=== PATIENT | female | born 1985 | race Two or more races ===

== ENCOUNTER 2017-02-12 12:00 | Observation (INO) | payer SELFPAY ==
[~2017-02-12] VITALS: Ht 154.9 cm; Wt 72.6 kg
[2017-02-12 13:37] LABS: Basophils # (auto) 0 uL; Basophils % (auto) 0.2 % (0.0-2.0); Eosinophils # (auto) 0.5 uL; Hematocrit 33.9 % (36.0-46.0); Hemoglobin 11.2 g/dL (12.2-16.2); Lymphocytes # (auto) 2.3 uL; Lymphocytes % (auto) 19.3 % (10.0-50.0); Mean Corpuscular Hemoglobin 28.4 pg (28.0-32.0); Mean Corpuscular Hgb Conc. 32.9 g/dL (32.0-36.0); Mean Corpuscular Volume 86.4 fL (80.0-100.0); Monocytes % (auto) 8.2 % (0.0-12.0); Neutrophils # (auto) 8.2 uL; Neutrophils % (auto) 68.3 % (37.0-80.0); Platelet Count (auto) 282 10^3/uL (140-450); Red Cell Distribution Width 14.4 % (11.8-14.3)
[2017-02-12 13:54] LABS: Albumin 2.5 g/dL (3.4-5.0); BUN/Creatinine Ratio 8.3; Bilirubin, Total 0.5 mg/dL (0.2-1.0); Calcium 7.9 mg/dL (8.5-10.1); Potassium 3.5 mmol/L (3.5-5.1); Total Protein 6.6 g/dL (6.4-8.2)
== END 2017-02-12 14:10 | disposition home or self-care (01) | DRG 781 ==
LOC: LDRP 12:00
PROVIDERS: ADMIT Specialist; ATTEND Specialist
DX: O26.893 Other specified pregnancy related conditions, third trimester (principal); R21 Rash and other nonspecific skin eruption; Z3A.33 33 weeks gestation of pregnancy
CPT/HCPCS: 36415; 59025; 80053; 81002; 84550; 85025; 86592; G0378

== ENCOUNTER 2017-03-29 19:45 | Inpatient (IN) | payer MEDICAID ==
[~2017-03-29] VITALS: Ht 154.9 cm; Wt 74.0 kg
[2017-03-29] MEDS ORDERED: LACTATED RINGER'S 1,000 ML IV SCH (21:37)
[2017-03-29] MEDS ORDERED: LACT. RINGERS/OXYTOCIN 20UNITS 1,000 ML IV SCH (21:37)
[2017-03-29] MEDS ORDERED: LACT. RINGERS/OXYTOCIN 20UNITS 1,000 ML IV ONE (21:38)
[2017-03-29] MEDS ORDERED: LIDOCAINE 2%HCL (LOCAL ANESTH.) INJ 20ML MDV ONE (21:38)
[2017-03-29] MEDS ORDERED: NALBUPHINE HCL 10 MG/1ml INJECTION IV PRN (21:45)
[2017-03-29] MEDS ORDERED: CARBOPROST TROMETHAMINE 250 MCG/1ML VIAL IM PRN (21:45)
[2017-03-29] MEDS ORDERED: BUTORPHANOL TARTRATE 2 MG/1 ML VIAL IV PRN (21:45)
[2017-03-29] MEDS ORDERED: NALOXONE HCL 0.4 MG/ML VIAL IM PRN (21:45)
[2017-03-29] MEDS ORDERED: PHISODERM TOP SOLN 240ML BTL TOP PRN (21:45)
[2017-03-29] MEDS ORDERED: METHYLERGONOVINE MALEATE 0.2 MG/ML AMP IM PRN (21:45)
[2017-03-29] MEDS ORDERED: WITCH HAZEL-GLYCERIN PAD TOP PRN (21:45)
[2017-03-29] MEDS ORDERED: DERMOPLAST 60ML BOTTLE TOP PRN (21:45)
[2017-03-29] MEDS ORDERED: LIDOCAINE 2%HCL (LOCAL ANESTH.) INJ 20ML MDV IJ ONE (21:45)
[2017-03-29 22:43] LABS: Urine Bacteria NONE SEEN /hpf (None Seen); Urine Blood Negative /uL (Negative); Urine Specific Gravity 1.006 (1.001-1.035); Urine WBC 1 /hpf (0 - 5)
[2017-03-29 22:46] LABS: Eosinophils # (auto) 0.5 uL; Monocytes # (auto) 0.8 uL
[2017-03-29 22:48] LABS: Basophils # (auto) 0 uL; Basophils % (auto) 0.1 % (0.0-2.0); Eosinophils % (auto) 4.1 % (0.0-7.0); Hematocrit 33.9 % (36.0-46.0); Hemoglobin 11.1 g/dL (12.2-16.2); Lymphocytes # (auto) 2.3 uL; Lymphocytes % (auto) 17.6 % (10.0-50.0); Mean Corpuscular Hemoglobin 26.8 pg (28.0-32.0); Mean Corpuscular Hgb Conc. 32.8 g/dL (32.0-36.0); Mean Corpuscular Volume 81.7 fL (80.0-100.0); Monocytes % (auto) 6.5 % (0.0-12.0); Neutrophils # (auto) 9.2 uL; Neutrophils % (auto) 71.7 % (37.0-80.0); Platelet Count (auto) 264 10^3/uL (140-450); Red Blood Cells 4.15 10^6/uL (4.0-5.20); Red Cell Distribution Width 15.6 % (11.8-14.3); White Blood Cell 12.9 10^3/uL (4.4-10.8)
[2017-03-29 22:58] LABS: INR 0.9 (0.9-1.15); Partial Thromboplastin Time 25.9 sec (22.64-33.71); Prothrombin Time 9.8 sec (9.37-12.3)
[2017-03-29] MEDS ORDERED: PREN-96 PO (23:05)
[2017-03-29 23:12] LABS: Albumin 2.5 g/dL (3.4-5.0); BUN/Creatinine Ratio 12.5; Bilirubin, Total 0.8 mg/dL (0.2-1.0); Calcium 8.6 mg/dL (8.5-10.1); Potassium 3.5 mmol/L (3.5-5.1); Uric Acid 3.4 mg/dL (2.6-6.0)
[2017-03-30 04:00] VITALS: BP 102/58
[2017-03-30] MEDS ORDERED: ACETAMINOPHEN 325 MG TAB PO PRN (05:45)
[2017-03-30] MEDS: IBUPROFEN 600 MG TAB PO PRN (05:58)
[2017-03-30 07:30] VITALS: BP 91/55
[2017-03-30 11:30] VITALS: BP 97/52
[2017-03-30 15:54] VITALS: BP 106/56
[2017-03-30 19:00] VITALS: BP 109/70
[2017-03-30 23:30] VITALS: BP 93/57
[2017-03-31] MEDS: IBUPROFEN 600 MG TAB PO PRN (00:06)
[2017-03-31 04:00] VITALS: BP 90/63
[2017-03-31 08:00] VITALS: BP 100/80
[2017-03-31 11:00] VITALS: BP 110/68
== END 2017-03-31 12:42 | disposition home or self-care (01) | DRG 560 ==
LOC: OBSVTOIN 19:45 → LDRP 19:45
PROVIDERS: ADMIT Obstetrics & Gynecology; ATTEND Obstetrics & Gynecology
PROC: 10E0XZZ Delivery of Products of Conception, External Approach (ICD-10-PCS; principal; 2017-03-30)
DX: O80 Encounter for full-term uncomplicated delivery (principal); Z37.0 Single live birth; Z3A.39 39 weeks gestation of pregnancy
CPT/HCPCS: 36415; 59025; 59409; 80053; 81001; 81002; 84550; 85025; 85610; 85730; 86850; 86900; 86901; 96365; 96366; 96374; J2590

== ENCOUNTER 2022-01-03 19:22 | Observation (INO) | payer MEDICAID ==
[~2022-01-03] VITALS: Ht 154.9 cm; Wt 70.8 kg
[~2022-01-03 19:22] MED LIST: PREN-96 PO
[2022-01-04] MEDS ORDERED: LACT. RINGERS/OXYTOCIN 20UNITS 1,000 ML IV ONE (05:10)
== END 2022-01-03 21:57 | disposition home or self-care (01) ==
LOC: LDRP 19:22
PROVIDERS: ADMIT Obstetrics & Gynecology; ATTEND Obstetrics & Gynecology
DX: O62.9 Abnormality of forces of labor, unspecified (principal); O09.513 Supervision of elderly primigravida, third trimester; O24.419 Gestational diabetes mellitus in pregnancy, unspecified control; Z3A.39 39 weeks gestation of pregnancy
CPT/HCPCS: 59025; 76818; 81002; 94760; G0378

== ENCOUNTER 2022-01-06 03:25 | Inpatient (IN) | payer MEDICAID ==
[~2022-01-06] VITALS: Ht 157.5 cm; Wt 70.8 kg
[2022-01-06] MEDS ORDERED: PHISODERM TOP SOLN 240ML BTL TOP PRN (04:00)
[2022-01-06] MEDS ORDERED: LIDOCAINE 2%HCL (LOCAL ANESTH.) INJ 10ml MDV IJ PRN (04:00)
[2022-01-06] MEDS ORDERED: DERMOPLAST 60ML BOTTLE TOP PRN (04:00)
[2022-01-06] MEDS ORDERED: PROMETHAZINE HCL 25 MG/ML 1ML IM PRN (04:00)
[2022-01-06] MEDS ORDERED: WITCH HAZEL-GLYCERIN PAD TOP PRN (04:00)
[2022-01-06] MEDS ORDERED: PROMETHAZINE HCL 25 MG/ML 1ML IV PRN (04:00)
[2022-01-06] MEDS ORDERED: BUTORPHANOL TARTRATE 2 MG/1 ML VIAL IV PRN ×2 (04:00)
[2022-01-06 04:18] LABS: Basophils # (auto) 0.1 10 ^3/uL (0-0.2); Basophils % (auto) 0.6 % (0.0-2.0); Eosinophils # (auto) 0.5 10 ^3/uL (0-0.8); Eosinophils % (auto) 4.8 % (0.0-7.0); Hematocrit 35.7 % (36.0-46.0); Hemoglobin 12.3 g/dL (12.2-16.2); Lymphocytes % (auto) 27.6 % (10.0-50.0); Mean Corpuscular Hemoglobin 30.2 pg (28.0-32.0); Mean Corpuscular Hgb Conc. 34.5 g/dL (32.0-36.0); Mean Corpuscular Volume 87.3 fL (80.0-100.0); Monocytes # (auto) 0.6 10 ^3/uL (0-1.3); Monocytes % (auto) 5.8 % (0.0-12.0); Neutrophils # (auto) 6.6 10 ^3/uL (1.6-8.6); Neutrophils % (auto) 61.2 % (37.0-80.0); Red Blood Cells 4.09 10^6/uL (4.0-5.20); Red Cell Distribution Width 16.2 % (11.8-14.3); White Blood Cell 10.8 10^3/uL (4.4-10.8)
[2022-01-06 04:20] LABS: Alcohol, Urine < 3.0 mg/dL (0-10); Amphetamine Screen, Urine NEGATIVE (NEGATIVE); Barbiturate Scree,Urine NEGATIVE (NEGATIVE); Benzodiazephine Screen, Urine NEGATIVE (NEGATIVE); Cannabinoid Screen, Urine NEGATIVE (NEGATIVE); Cocaine Screen, Urine NEGATIVE (NEGATIVE); Phencyclidine Screen, Urine NEGATIVE (NEGATIVE)
[2022-01-06 04:24] LABS: Opiate Scree,Urine NEGATIVE (NEGATIVE)
[2022-01-06 04:36] LABS: Albumin 2.3 g/dL (3.4-5.0); BUN/Creatinine Ratio 10.7; Calcium 8.6 mg/dL (8.5-10.1); Potassium 3.6 mmol/L (3.5-5.1)
[2022-01-06 04:37] LABS: INR 0.89 (0.9-1.15); Partial Thromboplastin Time 26.2 sec (24.6-33.4)
[2022-01-06 04:39] LABS: Bilirubin, Total 0.4 mg/dL (0.2-1.0); Total Protein 6.1 g/dL (6.4-8.2)
[2022-01-06 04:52] LABS: Urine Bacteria FEW /hpf (None Seen); Urine Blood 2+ /uL (Negative); Urine Specific Gravity 1.008 (1.001-1.035); Urine WBC 2 /hpf (0 - 5)
[2022-01-06] MEDS ORDERED: LACT. RINGERS/OXYTOCIN 20UNITS 1,000 ML IV SCH (05:00)
[2022-01-06] MEDS ORDERED: LACT. RINGERS/OXYTOCIN 20UNITS 500 ML IV ONE ×2 (05:00→05:30)
[2022-01-06] MEDS: LACTATED RINGER'S 1,000 ML IV SCH ×2 (06:56→15:26)
[2022-01-06] MEDS ORDERED: METHYLERGONOVINE MALEATE 0.2 MG/ML AMP IM ONE (09:15)
[2022-01-06] MEDS ORDERED: ePHEDrine SULFATE 50 MG/ML AMP IV ONE (10:45)
[2022-01-06] MEDS ORDERED: ROPIVACAINE 0.5% (5MG/ML) 20ML AMPULE IJ ONE (10:45)
[2022-01-06] MEDS ORDERED: LACTATED RINGER'S 500 ML IV ONE (11:45)
[2022-01-06] MEDS ORDERED: NALOXONE HCL 0.4 MG/ML VIAL IV ONE (11:45)
[2022-01-06] MEDS ORDERED: ROPIVACAINE HCL 200 ML EPI SCH (11:45)
[2022-01-06] MEDS ORDERED: Lidocaine W-Epinephrine 1.5%-1:200,000 INJ 10ml Vial ONE (12:17)
[2022-01-06] MEDS ORDERED: IBUPROFEN 600 MG TAB PO PRN (18:15)
[2022-01-06] MEDS ORDERED: ONDANSETRON ODT 4 MG TAB PO PRN (18:15)
[2022-01-06] MEDS: ACETAMINOPHEN 325 MG TAB PO PRN (20:16)
[2022-01-06] MEDS: DOCUSATE SOD 100 MG CAP PO SCH (21:43)
[2022-01-06 23:15] VITALS: BP 99/59
[2022-01-07 03:05] VITALS: BP 106/65
[2022-01-07 05:06] LABS: RPR Non Reactive (Non Reactive)
[2022-01-07 07:00] VITALS: BP 104/59
[2022-01-07] MEDS: DOCUSATE SOD 100 MG CAP PO SCH (10:24)
[2022-01-07] MEDS: ACETAMINOPHEN 325 MG TAB PO PRN (10:25)
[2022-01-07 11:00] VITALS: BP 106/68
[2022-01-07 15:00] VITALS: BP 104/66
[2022-01-07 19:15] VITALS: BP 105/64
[2022-01-07 19:35] VITALS: BP 105/64
== END 2022-01-07 19:34 | disposition home or self-care (01) | DRG 560 ==
LOC: LDRP 03:25 → OBSVTOIN 03:45 → LDRP 04:15
PROVIDERS: ADMIT Obstetrics & Gynecology; ATTEND Obstetrics & Gynecology
PROC: 10E0XZZ Delivery of Products of Conception, External Approach (ICD-10-PCS; principal; 2022-01-06)
PROC: 3E0R3BZ Introduction of Anesthetic Agent into Spinal Canal, Percutaneous Approach (ICD-10-PCS; 2022-01-06)
PROC: 00HU33Z Insertion of Infusion Device into Spinal Canal, Percutaneous Approach (ICD-10-PCS; 2022-01-06)
PROC: 0HQ9XZZ Repair Perineum Skin, External Approach (ICD-10-PCS; 2022-01-06)
DX: O70.0 First degree perineal laceration during delivery (principal); Z37.0 Single live birth; Z20.822 Contact with and (suspected) exposure to COVID-19; Z3A.39 39 weeks gestation of pregnancy; Z86.32 Personal history of gestational diabetes
CPT/HCPCS: 36415; 59025; 59409; 62282; 80053; 80307; 81001; 82948; 82962; 84112; 85025; 85610; 85730; 86592; 86850; 86900; 86901; 87426; 94760; 94762; 96360; 96361; 96365; 96366; G0378; J2590